=== PATIENT | female | born 1955 | race Caucasian/White ===

== ENCOUNTER 2022-09-28 20:20 | Emergency (ER) | payer OTHER ==
[~2022-09-28] VITALS: Ht 162.6 cm; Wt 54.9 kg
[2022-09-28] MEDS ORDERED: WARFARIN SODIUM5 MG PO (22:10)
[2022-09-29] MEDS ORDERED: CEPHALEXIN500 MG PO (00:34)
[2022-09-29 01:27] VITALS: BP 130/86
== END 2022-09-29 01:29 | disposition home or self-care (01) ==
LOC: ED 20:20
DX: S62.320B Displaced fracture of shaft of second metacarpal bone, right hand, initial encounter for open fracture (principal); W22.8XXA Striking against or struck by other objects, initial encounter; Z79.01 Long term (current) use of anticoagulants
CPT/HCPCS: 12002; 36415; 73130; 80053; 85025; 85610; 99283-25; A9270; J0690